=== PATIENT | male | born 2000 | race Caucasian/White ===

== ENCOUNTER 2024-02-06 09:43 | Emergency (ER) | payer SELFPAY ==
[2024-02-06 09:50] VITALS: BP 142/77
--- NOTE | 2024-02-06 11:12 | ED.SKININJ ---
HPI-Injury
General
Chief Complaint: Eye Problems
Source: patient
Exam Limitations: none
Time Seen by Provider: 02/06/24 10:16
Nursing documentation reviewed up to this point in time: agreed with
History of Present Illness-Injury
Initial Injury comments:
23-year-old male was grinding metal at home 2 days ago when he felt something go into his left eye. He rubbed it with some relief but yesterday and today it has become more irritated, photosensitive and tearing. Denies loss of vision, denies
significant eye pain or headache.
Past History
Past History
ED Past Medical History: None
ED Past Surgical History: None
Patient has exhibited threatening behavior?: No
PSI?: No
Social History
Tobacco: Smoker
Alcohol: None
Personal: Single
Living: with family
Employment: Employed
Review of Systems
Review of Systems
Allergies reviewed?: Yes
All Other Systems: ROS reviewed and negative except as documented in HPI and ROS
EENT: Reports other (FB sensation left eye)
ABD/GI: Denies nausea
Neurological: Denies headache
Phy Exam
Physical Exam
Physical Exam:
PHYSICAL EXAMINATION:
General: no apparent distress, not acutely ill
Neuro: alert and oriented.
Psychiatric: well kept. interactive and cooperative
Musculoskeletal: Moves with ease
Skin: Warm, pink.
Eye Exam
Eye Exam: PERRL, EOMI, cornea clear (left cornea with tiny black spec at 8 0'clock over iris just under the pupil), conjunctiva normal (mild injection and tearing), globe normal and visual acuity normal
Course
Orders/Labs/Results
Orders:
Orders
02/06/24 10:20
Visual Acuity- Treatment ONCE
02/06/24 11:27
Gentamicin [Genoptic 0.3% Eye Drops] See Dose Instructions LEFT EYE NOW STA
Vital Signs
Initial and Last Documented VS:
Initial Vital Signs
Temp Pulse Resp BP Pulse Ox
98.5 F 79 16 142/77 100
02/06/24 09:50 02/06/24 09:50 02/06/24 09:50 02/06/24 09:50 02/06/24 09:50
Last Documented Vital Signs
Temp Pulse Resp BP Pulse Ox
98.5 F 79 16 142/77 100
02/06/24 09:50 02/06/24 09:50 02/06/24 11:39 02/06/24 09:50 02/06/24 09:50
Procedures
Eye Procedures
Anesthesia: Alcaine
Removal of corneal foreign body with: slit lamp and use of corneal marlena
Foreign body removal was: complete
After removal was there a corneal abrasion?: corneal abrasion present (immediately at site)
MDM/Problems Addressed
MDM/Problems Addressed:
23-year-old male was grinding metal at home 2 days ago when he felt something go into his left eye. He rubbed it with some relief but yesterday and today it has become more irritated, photosensitive and tearing. Denies loss of vision, denies
significant eye pain or headache.
Full removal of the foreign body using a bur, patient tolerated procedure well
Discharged with antibiotic eyedrops and recommend ophthalmology follow-up
*Critical Care Note
Total Time (30-74mins, 75-104mins- exclusive of procedures): Not Applicable
ED Attending Note
-
Portions of this chart may have been created with voice recognition software.� Occasional wrong word or��sound alike� substitutions may have occurred due to the inherent limitations of voice recognition software.
Discharge Plan
Departure
Patient Disposition: Home (Routine Discharge)
Date of Disposition: 02/06/24
Time of Disposition: 11:20
Patient with high blood pressure during this ER visit?: No
Condition: Good
Discharge Problem:
Foreign body of left eye, Corneal abrasion
Instructions: Corneal Abrasion (DC), How to Use Eye Drops, Foreign Body in Eye (DC)
Prescriptions:
No Action
loratadine 10 MG tablet
10 mg PO PRN PRN (Reason: allergies)
hydrocodone-acetaminophen 1 TABLET tablet
1 - 2 tab PO Q4HPRN PRN (Reason: moderate to severe pain) Qty: 15 0RF
meclizine 25 MG tablet
25 mg PO Q8HPRN PRN (Reason: nausea or vertigo) Qty: 12 0RF
ondansetron 4 MG tablet,disintegrating
4 mg PO TIDPRN PRN (Reason: nausea/vomiting) Qty: 12 0RF
penicillin V potassium 500 MG tablet
500 mg PO Q6 Qty: 28 0RF
oxycodone 5 MG tablet
5 mg PO Q6HPRN PRN (Reason: severe pain) Qty: 12 0RF
Referrals:
Justine Schmitt MD [Active] - Follow up in 2-3 days
NONE,* [Family Provider] -
Activity Restrictions/Additional Instructions:
As we discussed, use the eye drops as follows: 1-2 drops in left eye 4 times a day for 5 days.
Ibuprofen or Tylenol as needed for eye discomfort.
See the eye doctor in 2-3 days for recheck.
Wear sunglasses until the eye feels less sensitive to light.
Interventions
Interventions:
*Risk Screen - Suicide Last Done: 02/06/24 09:52
*General Assessment Last Done: 02/06/24 09:52
*Neglect/Abuse Screening Last Done: 02/06/24 09:52
ED- Fall Risk Assessment Last Done: 02/06/24 11:46
*ED COVID-19 Vaccine History Last Done: 02/06/24 11:46
*Nursing Disposition Last Done: 02/06/24 11:46
Discharge Date and Time
Discharge Date/Time: 02/06/24 11:47
Print Language: GERMAN
[2024-02-06] MEDS: GENOPTIC 0.3% EYE DROPS 1 DROP LEFT EYE (11:40)
== END 2024-02-06 11:47 | disposition home or self-care (01) ==
LOC: EMR 09:43
PROVIDERS: EMERGENCY PHYSICIAN Emergency Medicine
DX: T15.02XA Foreign body in cornea, left eye, initial encounter (principal); S00.252A Superficial foreign body of left eyelid and periocular area, initial encounter; X58.XXXA Exposure to other specified factors, initial encounter; R56.9 Unspecified convulsions; G43.909 Migraine, unspecified, not intractable, without status migrainosus; F17.210 Nicotine dependence, cigarettes, uncomplicated; Z88.1 Allergy status to other antibiotic agents; Z88.8 Allergy status to other drugs, medicaments and biological substances
CPT/HCPCS: 99283

== ENCOUNTER 2025-06-24 00:43 | Emergency (ER) | payer SELFPAY ==
[2025-06-24 00:53] VITALS: BP 121/78
[2025-06-24 01:12] VITALS: BP 109/61
[2025-06-24 01:41] VITALS: BMI 16.1
[2025-06-24 02:08] LABS: Hematocrit 41.5 % (39.0-52.0); Hemoglobin 14.2 g/dL (13.0-18.0); Mean Corp Hgb Conc. 34.2 g/dL (33.0-37.0); Mean Corpuscular Volume 95.2 fL (80.0-94.0); Nucleated Red Blood Cells % 0 % (-); Platelet Count 277 10^3/uL (130-400); Red Cell Dist. Width 12.6 % (11.5-14.5)
[2025-06-24 02:24] LABS: ALT (SGPT) 23 U/L (0-50); AST (SGOT) 28 U/L (17-59); Albumin 4.4 g/dl (3.5-5.0); Alkaline Phosphatase 63 U/L (38-126); Blood Urea Nitrogen 15 mg/dl (9-20); Calcium 9.5 mg/dl (8.4-10.2); Carbon Dioxide 30 mmol/L (22-30); Chloride 103 mmol/L (98-107); Estimated Creatinine Clearance 116 ml/min; Glucose 103 mg/dl (70-99); Lipase 45 U/L (23-300); Potassium 4.2 mmol/L (3.5-5.1); Sodium 137 mmol/L (135-145); Total Protein 6.5 g/dl (6.3-8.2); eGFR > 60.00
--- NOTE | 2025-06-24 02:24 | ED.GENMED ---
History of Present Illness
General
Chief Complaint: Chest Pain
Source: patient and family (Father at bedside)
Exam Limitations: none
Time Seen by Provider: 06/24/25 01:19
History of Present Illness
History of Present Illness:
The patient is a 24-year-old male who presents with chest pain and cough that began tonight, few hours ago. The patient describes the chest pain as tightness, resembling a cramp or pinch, particularly noticeable with breathing. Chest pain is
located distal substernal region. He has had mild discomfort in this area over the past few days, worse with deep breath however, the pain intensified after the patient smoked marijuana tonight and experienced an episode of coughing. He admits
that he rarely if ever smokes marijuana. He was out with friends tonight and a marijuana cigarette was offered to him. With onset of coughing and increased lower substernal sharp chest pain he noticed tingling in bilateral hands as well as into
his neck. No headache, no weakness nor numbness. Increased chest pain began around 10:30 PM tonight with episode of coughing. The patient also reports smoking cigarettes for approximately eight years. He notes a transient increase in heart rate
correlated with the chest discomfort, which then returned to baseline. The patient has a history of asthma, mostly during childhood. Recently, he experienced right sided sciatic pain, leading to whole-body tension. He has been using lidocaine
patches to manage the sciatic discomfort.
He denies recent travel. No leg pain or swelling.
He takes no medicines on a daily basis save for vitamins.
Past History
Past History
ED Past Medical History: Asthma (Mostly childhood) and Other (Febrile seizure as an infant; migraine headaches)
ED Past Surgical History: Appendectomy
Patient has exhibited threatening behavior?: No
PSI?: No
Social History
Tobacco: Smoker
Alcohol: None
Drug: Marijuana (Rare use)
Personal: Single
Living: with family
Employment: Employed
Family History
Family History: Other (Noncontributory)
Phy Exam
Physical Exam
Physical Exam:
GENERAL: 24-year-old male appears his stated age, awake and alert, mildly anxious, easily communicative. Father is accompanying.
EYE: anicteric
NECK: Supple, nontender, no meningismus, no significant adenopathy.
ENT: oral mucosa is moist. No rhinorrhea.
CARDIAC: Regular rate and rhythm. no murmur. No rub. No palpable chest wall tenderness.
LUNGS: Clear breath sounds bilaterally, no acute respiratory distress, no wheezes/rales/rhonchi
ABDOMEN: Soft, nondistended, without focal tenderness, no r/g, no cvat. normoactive BS.
NEUROLOGICAL: Alert and oriented x3, no focal neuro deficits. Gait is steady.
SKIN: Warm and dry, normal color, skin intact. No rash.
MUSCULOSKELETAL: No C/C/E. peripheral pulses are full and equal b/l. No palpable tenderness.
PSYCH: Mildly anxious, easily communicative.
Scores
Heart Score for Chest Pain Patients
STEMI patient?: No
History: Slightly or Non-Suspicious
ECG: Normal
Age: </= 45 years
Risk Factors: No Risk Factors
Troponin: </= Normal Limit
Heart Score for Chest Pain Patients: 0
Heart Score Risk: 2.5% MACE over next 6 weeks
Course
Orders/Labs/Results
Orders:
Orders
06/24/25 00:46
Electrocardiogram (*1) Urgent
Reason for Study: Chest Pain
EKG- Treatment ONCE
06/24/25 01:58
Complete Blood Count/With Diff Urgent
Comment: REDRAW
D-Dimer Urgent
Comment: REDRAW
Troponin I Urgent
Comment: REDRAW
06/24/25 01:59
Comprehensive Metabolic Panel Urgent
Comment: REDRAW
Lipase Urgent
Comment: REDRAW
06/24/25 03:04
CR Chest - 2 Views Urgent
Comment:
Reason For Exam: acute CP, cough
06/24/25 03:41
Ketorolac [Toradol] 30 mg IV NOW STA
Abnormal Lab Results
06/24/25 06/24/25
01:58 01:59
WBC 17.0 H 10^3/uL
(4.8-10.8)
RBC 4.36 L 10^6/uL
(4.70-6.10)
MCV 95.2 H fL
(80.0-94.0)
MCH 32.6 H pg
(27.0-31.0)
Abs Immat Gran (auto) 0.1 H 10^3/uL
(0-0.05)
Absolute Neuts (auto) 14.1 H 10^3/uL
(1.4-6.5)
Absolute Monos (auto) 1.3 H 10^3/uL
(0.1-0.6)
Neutrophils % 83.2 H %
(42.2-75.2)
Lymphocytes % 8.2 L %
(20.5-51.1)
Glucose 103 H mg/dl
(70-99)
06/24/25 01:58
06/24/25 01:59
Vital Signs
Initial and Last Documented VS:
Initial Vital Signs
Temp Pulse Resp BP Pulse Ox
98.5 F 103 18 121/78 98
06/24/25 00:53 06/24/25 00:53 06/24/25 00:53 06/24/25 00:53 06/24/25 00:53
Last Documented Vital Signs
Temp Pulse Resp BP Pulse Ox
98 F 63 17 99/59 97
06/24/25 04:14 06/24/25 05:00 06/24/25 05:00 06/24/25 05:00 06/24/25 05:00
MDM/Problems Addressed
Differential Diagnosis Includes:
The Differential Diagnosis includes, in no particular order and is not limited to:
1. Costochondritis
2. Acute Bronchitis
3. Pleurisy
4. Pneumothorax
5. Gastroesophageal Reflux Disease (GERD)
6. Myocarditis
7. Pulmonary Embolism
8. Rib Fracture
9. Intercostal Muscle Strain
10. Asthma Exacerbation
MDM/Problems Addressed:
Acute chest pain, worse with cough
EKG shows sinus tachycardia otherwise unremarkable.
Initial sinus tachycardia has now resolved to normal sinus rhythm.
Patient is mildly anxious but overall appears comfortable, nontoxic in appearance and physical exam is unrevealing.
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
Will consider imaging depending on results.
Chronic conditions affecting care: Asthma
*Radiology
Radiology exam reviewed: preliminary read by ED provider (Chest x-ray is unremarkable. Clear lung peguero. Normal heart size. Normal mediastinum.)
*Pulse Oximetry
SaO2: 97
Oxygen Mode of Delivery: Room air
Patient hypoxic: no
*EKG
Interpreted by ED Provider?: Yes
Interpretation: normal
Comparison EKG: changes noted (Unchanged from previous save for heart rate has increased from 56 to now 100 compared to previous EKG 2020)
Rate: normal
Rhythm: sinus
[place]: normal axis
Interval: normal interval
QRS Pattern: normal QRS
Ischemia: no ischemia
*Credit Risk Specialist Interpretation
Rate: normal
Interpretation: normal
Rhythm: sinus
*Critical Care Note
Total Time (30-74mins, 75-104mins- exclusive of procedures): Not Applicable
Update Note
Update Note:
Labs reveal elevated white blood cell count of 17. Overall nonspecific. Chemistries are unremarkable. Normal troponin as well as normal D-dimer.
Chest x-ray is unremarkable, clear lung peguero. Normal heart size. Normal mediastinum.
Patient continues with some lower parasternal chest discomfort that is worse with a deep breath. I suspect costochondritis in nature and will trial an IV dose of Toradol.
05:10
Patient reports moderate improvement in pain after Toradol. Resting comfortably.
I suspect an element of costochondritis.
Recommend he avoid any further marijuana use and has been encouraged to discontinue tobacco use as well.
Tobacco cessation counseling of 3 minutes.
Recommend NSAIDs, rest and follow-up with PCP.
Patient currently lacks healthcare coverage and lacks a primary care physician. Will refer to our free clinic.
Return precautions discussed.
ED Attending Note
-
Portions of this chart may have been created with voice recognition software.� Occasional wrong word or��sound alike� substitutions may have occurred due to the inherent limitations of voice recognition software.
Discharge Plan
Departure
Patient Disposition: Home (Routine Discharge)
Date of Disposition: 06/24/25
Time of Disposition: 05:14
Patient with high blood pressure during this ER visit?: No
Condition: Good
Discharge Problem:
Acute costochondritis
Instructions: Costochondritis, Quitting smoking - ED (DC)
Prescriptions:
New
ibuprofen 600 mg tablet
600 mg PO Q6H PRN (Reason: fever or pain) Qty: 30 0RF
Discontinued
hydrocodone-acetaminophen 1 TABLET tablet
1 - 2 tab PO Q4HPRN PRN (Reason: moderate to severe pain) Qty: 15 0RF
meclizine 25 MG tablet
25 mg PO Q8HPRN PRN (Reason: nausea or vertigo) Qty: 12 0RF
ondansetron 4 MG tablet,disintegrating
4 mg PO TIDPRN PRN (Reason: nausea/vomiting) Qty: 12 0RF
penicillin V potassium 500 MG tablet
500 mg PO Q6 Qty: 28 0RF
oxycodone 5 MG tablet
5 mg PO Q6HPRN PRN (Reason: severe pain) Qty: 12 0RF
No Action
loratadine 10 MG tablet
10 mg PO PRN PRN (Reason: allergies)
Referrals:
NONE,* [Family Provider, Internal Medicine]
[facility] - Call in 1-3 days for appt
Interventions
Interventions:
*Risk Screen - Suicide Last Done: 06/24/25 00:53
*General Assessment Last Done: 06/24/25 00:59
*Neglect/Abuse Screening Last Done: 06/24/25 00:53
*ED- Fall Risk Assessment Last Done: 06/24/25 01:42
*ED COVID-19 Vaccine History Last Done: 06/24/25 01:42
*ED Influenza Vaccine History Last Done: 06/24/25 01:42
ED- Cardiac Assessment Last Done: 06/24/25 01:42
Discharge Date and Time
Print Language: AZERI
[2025-06-24 02:28] VITALS: BP 117/67
[2025-06-24 02:31] LABS: Troponin I 0.015 ng/ml
[2025-06-24 02:33] LABS: D-Dimer < 0.27 ug/mlFEU (0.00-0.50)
[2025-06-24 03:00] VITALS: BP 112/59
[2025-06-24] MEDS: TORADOL 30 MG IV (04:09)
[2025-06-24 04:13] VITALS: BP 90/59
[2025-06-24 05:00] VITALS: BP 99/59
== END 2025-06-24 06:10 | disposition home or self-care (01) ==
LOC: EMR 00:43
PROVIDERS: EMERGENCY PHYSICIAN Emergency Medicine
DX: M94.0 Chondrocostal junction syndrome [Tietze] (principal); J45.909 Unspecified asthma, uncomplicated; F12.90 Cannabis use, unspecified, uncomplicated; F17.210 Nicotine dependence, cigarettes, uncomplicated; Z90.49 Acquired absence of other specified parts of digestive tract
CPT/HCPCS: 99283; 96374; 71046; 80053; 83690; 84484; 85025; 85379; 93005